=== PATIENT | female | born 1940 | race Caucasian/White ===

== ENCOUNTER 2020-02-21 13:50 | Emergency (ER) | payer OTHER, MEDICARE, SELFPAY ==
[2020-02-21 13:52] VITALS: BP 200/80; PULSE 88; RESP 16; TEMP 36.8; O2SAT 93; BMI 25.7
--- NOTE | 2020-02-21 13:54 | XR_ITS ---
WS: [id number] XR shoulder LT min 2V* [id number] REASON FOR EXAM: injury FINDINGS: Three-part fracture of the surgical neck of the left humerus with anterior displacement of the debora l shaft. Third part is fracture of the greater tuberosity, minimal displacement. Normal humeral head and glenoid articulation. XR/XR shoulder LT min 2V* 53085 IMPRESSION: Proximal left humeral fracture as above.
--- NOTE | 2020-02-21 13:54 | ED_ITS ---
HPI - Fall General: Chief Complaint: Fall Stated Complaint: POSS DISLOCATED OR FX SHOULDER Time Seen by Provider: 02/21/20 13:52 Source: patient and EMS Mode of arrival: EMS Limitations: no limitations History of Present Illness: HPI Narrative: 79-year-old female states she tripped on a piece of concrete in a parking lot. She states she landed on her left shoulder and struck her head as well. She states she has shoulder pain that she rates a 7 out of 10. She denies any loss conscious. She denies any neck pain. She denies any other extremity pain. She is not on any blood thinners. Associated symptoms-after fall: Denies abdominal pain, chest pain or headache(s) Review of Systems Const: Denies: fever(s), chills, body aches or change in appetite Eyes: Denies: blurry vision or eye discomfort ENMT: Denies: throat pain or dental pain Card: Denies: chest pain Resp: Denies: dyspnea GI: Denies: abdominal pain, nausea, vomiting or diarrhea : Denies: dysuria Musc: Reports: extremity pain Skin/Breast: Denies: rash Neuro: Denies: headache(s) Psych: Denies: depression Bola/Lymph: Denies: easy bruising All/Imm: Denies: urticaria Physical Exam Const: COMMON NORMALS: no acute distress, patient oriented x3 and healthy appearing HENMT: COMMON NORMALS: normocephalic HEAD & SCALP: normocephalic OTHER: Slight contusion to forehead Eye: COMMON NORMALS: Equal, round and reactive pupils present and EOMs intact bilaterally PUPIL: Yes Equal, round and reactive pupils present Neck/C-Spine: COMMON NORMALS: full ROM and supple Chest: COMMONS NORMALS: normal inspection of the chest and normal palpation of entire chest wall Resp: COMMON NORMALS: normal respiratory effort, No retractions, No use of accessory muscles and clear to auscultation bilaterally AUSCULTATION: clear to auscultation bilaterally Cardio: COMMON NORMALS: regular rate, regular rhythm and No murmurs present (Cardio) RATE: regular rate RHYTHM: regular rhythm GI: COMMON NORMALS: Normal to inspection, nondistended, normoactive bowel sounds present, Soft to palpation, non-tender and no masses PALPATION: Yes Soft to palpation Extremity: NARRATIVE EXTREMITY EXAM: Tenderness over left humerus no obvious dislocation distal pulses are intact. Neuro: COMMON NORMALS: patient oriented x3, moves all extremities and no focal motor deficits Psych: COMMON NORMALS: mental status grossly normal, Normal thought process present and cooperative THOUGHT PROCESS: Normal thought process present Skin: COMMON NORMALS: no rashes or lesions noted and no wounds GENERAL SKIN EXAM: no rashes or lesions noted Course Vital Signs: Vital signs: Vital Signs Temperature 98.3 F 02/21/20 13:52 Pulse Rate 88 02/21/20 13:52 Respiratory Rate 16 02/21/20 13:52 Blood Pressure 200/80 02/21/20 13:52 Pulse Oximetry 93 02/21/20 13:52 MDM - Fall MDM Narrative: Medical decision making narrative: Patient presents here with proximal humerus fracture from a fall. No other injuries are noted. Patient placed in a sling and will have her follow-up with orthopedics. She had no neck pain. Head CT here is normal. Imaging Data^: CT Head: Radiologist's impression: [address] [address] [address] Scan Report Signed Patient: Isabel Del Real Unit #: [id number] : 1940 Acct#:O [id number] Age/Sex: 79 / F ADM Date: 02/21/20 Loc: ER Room/Bed: Attending Dr: Ordering Provider/Ordering MD: Dariel Sparks MD Date of Service: 02/21/20 Procedure(s): CT head wo con* [id number] Accession Number(s): [id number] Report Number: [id number] WS: [id number] CT HEAD NONCONTRAST HISTORY: fall TECHNIQUE: Contiguous axial imaging performed through the brain in 2.5 mm imaging. Bone and soft tissue windows. Sagittal and coronal reformats reviewed. All CT scans at [facility] use at least one of these dose optimization techniques: automated exposure control; mA and/or kV adjustment per patient size (includes targeted exams where dose is matched to clinical indication); or iterative reconstruction. DLP: 770.73 mGy.cm COMPARISON: None available. No acute intracranial hemorrhage, midline shift or mass effect. Mild chronic microvascular ischemic changes. Small lacunar infarct anterior limb RIGHT internal capsule. No atrophy or prior infarcts or herniation. Ventricles: Normal size with no hydrocephalus. No inferior displacement of the cerebellar tonsils. Paranasal sinuses: Moderate mucoperiosteal thickening in the RIGHT maxillary sinus. No air-fluid level. Mastoid air cells: Well pneumatized. Calvarium and scalp: Skull is intact with no soft tissue edema or swelling. CT/CT head wo con* 73920 IMPRESSION: 1. No acute intracranial hemorrhage or edema. 2. No skull fracture. Xray Ortho: Radiologist's impression: [address] [address] XRay Report Signed Patient: Isabel Del Real Unit #: [id number] : 1940 Age/Sex: 79 / F ADM Date: 02/21/20 Loc: ER Room/Bed: Attending Dr: Ordering Provider/Ordering MD: Dariel Sparks MD Date of Service: 02/21/20 Procedure(s): XR shoulder LT min 2V* 21902 Accession Number(s): [id number] Report Number: [id number] WS: [id number] XR shoulder LT min 2V* 46974 REASON FOR EXAM: injury FINDINGS: Three-part fracture of the surgical neck of the left humerus with anterior displacement of the humeral shaft. Third part is fracture of the greater tuberosity, minimal displacement. Normal humeral head and glenoid articulation. XR/XR shoulder LT min 2V* [id number] IMPRESSION: Proximal left humeral fracture as above. Discharge Plan Discharge Patient Disposition: Home Clinical Impression: Closed left humeral fracture Qualifiers: Encounter type: initial encounter Humerus Location: proximal Fracture morphology: other fracture Fracture alignment: nondisplaced Qualified Code(s): S42.295A - Other nondisplaced fracture of upper end of left humerus, initial encounter for closed fracture Fall Qualifiers: Encounter type: initial encounter Qualified Code(s): W19.XXXA - Unspecified fall, initial encounter Condition: Stable Prescriptions: New Dustin 5-325 mg tablet 1 tab PO Q6H PRN (Reason: pain) Qty: 14 RF: 0 No Action albuterol sulfate 90 mcg/actuation HFA aerosol inhaler 1 puff INHALATION Q6H PRN (Reason: Shortness Of Breath) RF: 0 Vitamin D3 25 mcg (1,000 unit) Tablet 50 mcg PO DAILY@10 RF: 0 PreserVision AREDS-2 190-377-03-1 nd-qpix-gy-mg Capsule 1 tab PO BID@,22 RF: 0 Discharge Orders: Discharge ED (Routine); Ordered 02/21/20 Ordered By: Dariel Sparks Referrals: Dorian Luong MD [Physician] - 1-3 days [place] [Primary Care Provider] - Discharge Diet: Advance as tolerated Discharge Activity: Resume usual activity Patient Instructions: Fractures - Humerus Coding Level of Care Code ED Coiled Tubing Operator for Chg Fwd Exam Comprehensive
--- NOTE | 2020-02-21 13:54 | CT_ITS ---
WS: [id number] CT HEAD NONCONTRAST HISTORY: fall TECHNIQUE: Contiguous axial imaging performed through the brain in 2.5 mm imaging. Bone and soft tiss ue windows. Sagittal and coronal reformats reviewed. All CT scans at [facility] use at ast one of these dose optimization techniques: automated exposure control; mA and/or kV adjustment pe r patient size (includes targeted exams where dose is matched to clinical indication); or iterative r econstruction. DLP: 770.73 mGy.cm COMPARISON: None available. No acute intracranial hemorrhage, midline shift or mass effect. Mild chronic microvascular ischemic c hanges. Small lacunar infarct anterior limb RIGHT internal capsule. No atrophy or prior infarcts or herniation. Ventricles: Normal size with no hydrocephalus. No inferior displacement of the cerebellar tonsils. Paranasal sinuses: Moderate mucoperiosteal thickening in the RIGHT maxillary sinus. No air-fluid leve l. Mastoid air cells: Well pneumatized. Calvarium and scalp: Skull is intact with no soft tissue edema or swelling. CT/CT head wo con* [id number] IMPRESSION: 1. No acute intracranial hemorrhage or edema. 2. No skull fracture.
--- NOTE | 2020-02-21 14:51 | XR_ITS ---
WS: [id number] XR elbow LT min 3V* [id number] REASON FOR EXAM: injury FINDINGS: The lateral view is not optimal to further evaluate radial head and to identify joint effusion. No fracture or dislocation is identified. There is a lucency in the radius proximal 15 mm distal to the left radial head. This area is well-def ined and surrounded by sclerotic rim with density extending into the marrow space. There may also be an organized periosteal reaction around one margin. XR/XR elbow LT min 3V* [id number] IMPRESSION: No fracture or dislocation. As clinically warranted would attempt a better posi tioned lateral view of the left elbow. Small focal lesion in the proximal left radius. The etiology and activity of th is abnormality are uncertain. It is not an acute abnormality. In the appropriat e clinical setting there would be concern for a Dennis's abscess. Very unusual location for a solitary bone lesion.
[2020-02-21 15:00] VITALS: BP 188/86; PULSE 94; RESP 20; O2SAT 95
[2020-02-21] MEDS: HYDROcodone-acetaminophen 7.5-325 mg Tablet 1 TAB PO (15:02)
--- NOTE | 2020-02-21 15:57 | DCPLANNER ---
train operations manager had message to schedule a follow up appointment for patient with ortho. train operations manager called the ortho clinic, spoke with Pamela, gave clinic patients information. train operations manager was told that patients information would be printed and reviewed. Clinic will call patient with appointment information.
[2020-02-21 16:23] VITALS: BP 167/68; PULSE 91; RESP 18; O2SAT 90
--- NOTE | 2020-02-22 13:57 | DCPLANNER ---
Dana from the ortho clinic called case technician stating that when clinic called patient to schedule an appointment that patient stated that she was seeing someone at a different clinic.
== END 2020-02-21 16:20 | disposition home or self-care (01) ==
PROVIDERS: Emergency Provider Emergency Medicine; PCP Family Medicine
DX: S42.295A Other nondisplaced fracture of upper end of left humerus, initial encounter for closed fracture (principal); W18.09XA Striking against other object with subsequent fall, initial encounter
CPT/HCPCS: 12345; 70450; 73030; 73080; 99281; 99283